=== PATIENT | female | born 1980 | race Caucasian/White ===

== ENCOUNTER 2016-08-31 10:17 | Day surgery (SDC) | payer BC ==
[~2016-08-31 10:17] MED LIST: Buffered Lidocaine 0.9% SYRIN* 5 ML/SYR SYRINGE INTRADERM ONE; Famotidine IV* 10 MG/ML 2 ML (20 mg) IV ONE
[2016-08-31] MEDS ORDERED: Famotidine IV* 10 MG/ML 2 ML (20 mg) ONE (10:54)
[2016-08-31] MEDS ORDERED: Clindamycin 900 MG IVPREMIX(* 900 MG/50 ML SDV IV ONE (10:54)
[2016-08-31] MEDS ORDERED: Buffered Lidocaine 0.9% SYRIN* 5 ML/SYR SYRINGE ONE (10:55)
[2016-08-31] MEDS ORDERED: fentaNYL* 50 MCG/ML 2 ML VIAL (100 MCG VIAL) ONE ×2 (11:33→13:12)
[2016-08-31] MEDS ORDERED: Midazolam* 1 MG/ML 5 ML VIAL (5 MG) ONE (11:33)
[2016-08-31] MEDS ORDERED: KETAMINE HCL* 50 MG/ML 10 ML VIAL ONE (11:33)
[2016-08-31] MEDS ORDERED: Bupivacaine 0.5% W/EPI SDV* 30 ML VIAL ONE (12:34)
[2016-08-31] MEDS ORDERED: Bupivacaine 0.25% SDV* 30 ML ONE (12:35)
[2016-08-31] MEDS ORDERED: methylPREDNISolone ACETATE 80* 80 MG/ML 1 ML VIAL ONE (13:52)
[2016-08-31 15:23] VITALS: BP 114/82
--- NOTE | 2016-09-07 08:15 | OP ---
DATE OF OPERATION: 08/31/16 [facility] DATE OF : 76 SURGEON: Valentina Nice MD [employer] SUPERVISOR: JAZZY Moncada ANESTHESIOLOGIST: Dr. Syed. ANESTHESIA: General PRE-OP DIAGNOSIS: Right knee anterior cruciate ligament insufficiency with bucket- handle medial meniscus tear. POST-OP DIAGNOSES: Right knee anterior cruciate ligament insufficiency with bucket- handle medial meniscus tear, lateral meniscal fraying. OPERATIVE PROCEDURE: Right knee arthroscopy with subtotal medial meniscectomy, partial lateral meniscectomy, as well as chondroplasty of the lateral femoral compartment. 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 She had a previous ACL reconstruction in the left knee and did poorly with this. She has had this for more than 10 years. She occasionally had symptoms of catching and locking. She did have a scope of this. She has had persistent issues over the years but had a recent injury where her knee was locked and she was unable to weight bear. She was diagnosed with displaced bucket-handle medial meniscus tear. After extensive discussion of the risks and benefits of surgical versus nonoperative treatment, she has elected to proceed with surgery to address the meniscus. She is thinking about taking care of the ACL but due to small children and time constraint, she does not know if she is ready to do this. Risks include but are not limited to bleeding; infection; damage to nerves, vessels, surrounding structures; wound nonhealing; persistent pain; need for further surgery; risk of further injury to the meniscus; scarring; persistent pain; stiffness; risk of DVT; risk of anesthesia. COMPLICATIONS: None. ESTIMATED BLOOD LOSS: Minimal. DESCRIPTION OF PROCEDURE: The patient was greeted in the preoperative area by the attending surgeon. Correct extremity was marked and consent was confirmed. The patient was then brought back to the operating suite where she was placed in supine position on the operating table. She then underwent general anesthesia with LMA intubation, after which an unsterile tourniquet was placed high in the proximal knee. The lateral post was positioned. After a miniature surgical pause, the knee was intra-articularly injected with 0.25% Marcaine with epi. The right knee was prepped and draped in the usual sterile fashion beginning with chlorhexidine soap, scrub, and alcohol wipe, and a final prep with ChloraPrep. After appropriate surgical pause indicating side, site, procedure, and administration of antibiotics, the standard gerald-lateral portal was made sharply with 11 blade. The scope was introduced in the joint. The joint was examined. There was abundant synovium and fat pad apparent. The scope was positioned in the suprapatellar pouch. There were grade 0 to 1 changes of the patella and the trochlea. The lateral and medial gutters were without fraying. The scope was brought into the notch and there was obvious complete absence of ACL in the notch. The tibial stump was scarred to the PCL but the medial meniscus bucket-handle tear was evident. This appeared to be acute and not very chronic. This was in the red- white zone. The probe was then used to reduce the meniscus back, which was slightly reduced. Although this tear was considered repairable, the patient requested to not repair due to inability to cope with the postoperative rehab. The biters and donaldo were used to do partial meniscectomy, which allowed for almost 60% loss of medial meniscus. The bundle-handle tear extended all the way to the root of the meniscus. The shaver and biters were used to remove this. There were grade 0 to 1 changes of the medial femoral condyle and grade 1 to 2 changes in the medial tibial plateau. After this was done, attention was directed to the lateral compartment. There were grade 2 changes with unstable fraying of the lateral tibial plateau as well as small radial tear of the lateral meniscus with unstable fraying. The shaver and the biters were then used to do a partial meniscectomy laterally. The shaver was also used to do chondroplasty of the lateral compartment as well to remove any unstable tissue. Once the meniscectomy and chondroplasty were complete, all loose fluid and debris was removed from the knee. The knee was carefully lavaged. The portals were then closed with 3-0 nylon. The knee was intra-articularly injected with 0.25% Marcaine plain. Sterile dressings were applied as well as Cryo/Cuff. She was awoken from anesthesia and transferred to the PACU in stable condition. POSTOPERATIVE PLAN: She will be weightbearing as tolerated. She will be allowed to work on range of motion. She will be given crutches. She will be discharged on pain medication. DVT prophylaxis considered but deferred due to no previous personal or family history. I will see the patient back in 10 to 14 days. [id number]/[facility] #: [id number] LESLIE
== END 2016-08-31 15:37 | disposition home or self-care (01) ==
LOC: OREAST 10:17
PROVIDERS: ATTEND Orthopaedic Surgery
DX: S83.211A Bucket-handle tear of medial meniscus, current injury, right knee, initial encounter (principal); M23.200 Derangement of unspecified lateral meniscus due to old tear or injury, right knee; M23.611 Other spontaneous disruption of anterior cruciate ligament of right knee; E03.9 Hypothyroidism, unspecified; X50.0XXA Overexertion from strenuous movement or load, initial encounter; Y92.89 Other specified places as the place of occurrence of the external cause
CPT/HCPCS: J1040; J2250; J3010

== ENCOUNTER 2017-04-26 09:10 | Emergency (ER) | payer BC ==
[2017-04-26 10:00] LABS: ABS Basophils 0 10^3/ul (0-0.2); ABS Eosinophils 0.1 10^3/ul (0-0.6); ABS Lymphocytes 1.6 10^3/ul (1.0-4.8); ABS Monocytes 0.3 10^3/ul (0-0.8); ABS Neutrophils 3.8 10^3/ul (1.5-7.7); ABS Nucleated RBC 0 10^3/ul; Eosinophil % 2.5 % (0-6); Hematocrit 40 % (35-47); Lymphocyte % 26.9 % (25-47); Mean Corpuscular HGB Conc 35 g/dl (31-36); Mean Corpuscular Hemoglobin 33 pg (27-31); Mean Corpuscular Volume 95 fL (80-97); Mean Platelet Volume 8 um3 (7.4-10.4); Nucleated Red Blood Cells % 0; Platelet Count 235 10^3/ul (150-450); Red Blood Count 4.25 10^6/ul (4.0-5.4); Red Cell Distribution Width 12 % (10.5-15); White Blood Count 5.9 10^3/ul (3.5-10.8)
[2017-04-26 10:15] LABS: EGFR Non-African American 103.9 (>60)
--- NOTE | 2017-04-26 10:38 | ED ---
Upper Extremity Pain - HPI Summary HPI Summary: 36F presents with left arm pain since last night. She states she was lifting laundry when she developed the pain. She states the pain is in her left upper arm. She states it was a sharp pain that became a dull ache this morning. She states the pain has decreased in intensity. She states she had occasional numbness in her entire left arm. She denies any neck pain. She denies any shoulder pain or elbow. She denies any chest pain. She denies any shortness of breath or diaphoresis or vomiting and nausea. She denies pain radiating anywhere. She has never had this before. She denies ever having this before. She has no medical conditions. She has family history of cardiac disease. She doesn't smoke. - History of Current Complaint Chief Complaint: EDExtremityUpper Stated Complaint: LT ARM PAIN Time Seen by Provider: 04/26/17 09:27 Hx Last Menstrual Period: 1 week - Allergies/Home Medications Allergies/Adverse Reactions: Allergies Allergy/AdvReac Type Severity Reaction Status Date / Time MS Penicillins [Penicillins] Allergy Hives Verified 08/31/16 11:03 PMH/Surg Hx/FS Hx/Imm Hx Endocrine/Hematology History: Reports: Hx Thyroid Disease - hypothyroid, controlled with medication Denies: Hx Diabetes Cardiovascular History: Denies: Hx Hypertension, Hx Pacemaker/ICD History: Reports: Other Problems/Disorders - frequant urinary tract when pt was in her 20' and early 30", Denies: Hx Renal Disease Sensory History: Reports: Hx Contacts or Glasses - contact, will wear glasses DOS Denies: Hx Hearing Aid Opthamlomology History: Reports: Hx Contacts or Glasses - contact, will wear glasses DOS Psychiatric History: Reports: Hx Anxiety - improved Denies: Hx Panic Disorder - Surgical History Surgery Procedure, Year, and Place: ADNOIDS. LT KNEE -ACL RECON 1997. ARTHROSCOPIC PROCEDURE - 2 Lt KNEE 1992 & late s, 1 Rt KNEE 1998 Hx Anesthesia Reactions: No Infectious Disease History: No Infectious Disease History: Denies: Traveled Outside the [place] in Last 30 Days - Family History Known Family History: Positive: Cardiac Disease - Social History Alcohol Use: Rare Alcohol Amount: 1-2 drinks once a month Substance Use Type: Reports: None Smoking Status (MU): Never Smoked Tobacco Review of Systems Negative: Fever Negative: Chest Pain Negative: Shortness Of Breath Positive: Myalgia - left arm pain All Other Systems Reviewed And Are Negative: Yes Physical Exam Triage Information Reviewed: Yes Vital Signs On Initial Exam: Initial Vitals Temp Pulse Resp BP Pulse Ox 97.9 F 75 18 149/89 99 04/26/17 09:17 04/26/17 09:17 04/26/17 09:17 04/26/17 09:17 04/26/17 09:17 Vital Signs Reviewed: Yes Appearance: Positive: Well-Appearing Skin: Positive: Warm, Dry Head/Face: Positive: Temporal Artery Tenderness Eyes: Positive: Normal, Conjunctiva Clear Neck: Positive: Other: - nontender neck, full ROM neck Respiratory/Lung Sounds: Positive: Clear to Auscultation, Breath Sounds Present , Other - nontender chest Cardiovascular: Positive: Normal, RRR Musculoskeletal: Positive: Strength/ROM Intact - left arm, Other - good Pulses, capillary refill less than 2 seconds, sensation grossly intact, nontender arm, negative yearsgon. Neurological: Positive: Normal Psychiatric: Positive: Normal Diagnostics - Vital Signs Vital Signs Temp Pulse Resp BP Pulse Ox 04/26/17 09:17 97.9 F 75 18 149/89 99 - Laboratory Lab Results: Lab Results 04/26/17 04/26/17 Range/Units 09:50 09:50 WBC 5.9 (3.5-10.8) 10^3/ul RBC 4.25 (4.0-5.4) 10^6/ul Hgb 14.0 (12.0-16.0) g/dl Hct 40 (35-47) % MCV 95 (80-97) fL MCH 33 H (27-31) pg MCHC 35 (31-36) g/dl RDW 12 (10.5-15) % Plt Count 235 (150-450) 10^3/ul MPV 8 (7.4-10.4) um3 Neut % (Auto) 64.5 (38-83) % Lymph % (Auto) 26.9 (25-47) % Dent % (Auto) 5.3 (1-9) % Eos % (Auto) 2.5 (0-6) % Baso % (Auto) 0.8 (0-2) % Absolute Neuts (auto) 3.8 (1.5-7.7) 10^3/ul Absolute Lymphs (auto) 1.6 (1.0-4.8) 10^3/ul Absolute Monos (auto) 0.3 (0-0.8) 10^3/ul Absolute Eos (auto) 0.1 (0-0.6) 10^3/ul Absolute Basos (auto) 0 (0-0.2) 10^3/ul Absolute Nucleated RBC 0 10^3/ul Nucleated RBC % 0 Sodium 138 (133-145) mmol/L Potassium 3.5 (3.5-5.0) mmol/L Chloride 106 (101-111) mmol/L Carbon Dioxide 26 (22-32) mmol/L Anion Gap 6 (2-11) mmol/L BUN 15 (6-24) mg/dL Creatinine 0.64 (0.51-0.95) mg/dL Est GFR ( Amer) 133.6 (>60) Est GFR (Non-Af Amer) 103.9 (>60) BUN/Creatinine Ratio 23.4 H (8-20) Glucose 86 (70-100) mg/dL Calcium 9.1 (8.6-10.3) mg/dL Total Bilirubin 0.60 (0.2-1.0) mg/dL AST 13 (13-39) U/L ALT 12 (7-52) U/L Alkaline Phosphatase 66 (34-104) U/L Troponin I 0.00 (<0.04) ng/mL Total Protein 6.9 (6.4-8.9) g/dL Albumin 4.1 (3.2-5.2) g/dL Globulin 2.8 (2-4) g/dL Albumin/Globulin Ratio 1.5 (1-3) Result Diagrams: 04/26/17 09:50 04/26/17 09:50 Lab Statement: Any lab studies that have been ordered have been reviewed, and results considered in the medical decision making process. - EKG No standard instances Cardiac Rate: NL EKG Rhythm: Sinus Rhythm ST Segment: Normal EKG Interpretation: normal sinus rhythm EKG Comparison: No Significant Change Course/Dx - Course Assessment/Plan: 36F presents with left arm pain since last night. She states she was lifting laundry when she developed the pain. She states the pain is in her left upper arm. She states it was a sharp pain that became a dull ache this morning. She states the pain has decreased in intensity. She states she had occasional numbness in her entire left arm. She denies any neck pain. She denies any shoulder pain or elbow. She denies any chest pain. She denies any shortness of breath or diaphoresis or vomiting and nausea. She denies pain radiating anywhere. She has never had this before. She denies ever having this before. She has no medical conditions. She has family history of cardiac disease. She doesn't smoke. On exam nontender. Neurovascularly intact. Negative yergason. EKG normal. Troponin negative. Likely muscular with have follow up with primary. Patient understands and agrees with plan. - Diagnoses Differential Diagnosis/HQI/PQRI: Positive: Fracture (Closed), Sprain, Other - cardiac Provider Diagnoses: Left arm pain Discharge - Discharge Plan Condition: Good Disposition: HOME Patient Education Materials: Arm Pain (ED) Referrals: Bhakti Botello MD [Primary Care Provider] - Additional Instructions: Take Tylenol or ibuprofen every 6 hours as needed for pain Apply ice, rest, elevate Follow up with primary care physician within 5 days Return to ED if develop any new or worsening symptoms
[2017-04-26 10:52] VITALS: BP 118/74
== END 2017-04-26 10:51 | disposition home or self-care (01) ==
LOC: ED 09:10
DX: M79.602 Pain in left arm (principal); X50.9XXA Other and unspecified overexertion or strenuous movements or postures, initial encounter; Y93.E2 Activity, laundry; Y92.9 Unspecified place or not applicable
CPT/HCPCS: 36415; 80053; 84484; 85025; 93005; 99282